=== PATIENT | male | born 1970 | race Caucasian/White ===

== ENCOUNTER 2025-05-30 16:30 | Emergency (ER) | payer MEDICARE, MEDICAID, SELFPAY ==
[2025-05-30 16:31] VITALS: BP 128/70; PULSE 89; RESP 16; TEMP 36.8; O2SAT 99; BMI 31.7
--- NOTE | 2025-05-30 16:50 | EX.ED.VIS.UR ---
HPI HPI - URI History of Present Illness Chief Complaint: Cough Informant: patient and parent Narrative Narrative: Patient is a 54-year-old male with a history of borderline diabetes presenting with cough and ear pressure. Patient is accompanied by his daughter, who is supplementing history. - Reports cough for 3 days, worsening over time. - Denies productive cough, but notes soreness in the abdomen and side from coughing. - Denies emesis. - Experiences a heavy feeling in the chest when coughing hard, but denies dyspnea at rest or with ambulation. - Denies fevers, myalgias, or cephalgia. - Reports exposure to sick contacts at work, but denies known COVID-19 exposure. - Denies pharyngitis, but reports mild bilat ear pressure without hearing loss. - Denies history of pulmonary issues such as asthma. - Denies tobacco use. - Denies polydipsia or polyuria. ROS ROS ED Constitutional Constitutional ED: Denies chills or fever(s) Eyes Eyes: Denies change in vision or diplopia ENT ENT ED: Denies ear pain, rhinorrhea or sore throat Cardiovascular Cardiovascular: Denies chest pain, orthopnea or palpitations Respiratory/Chest Respiratory/Chest: Reports cough; Denies dyspnea, dyspnea on exertion, orthopnea or sputum Gastrointestinal Gastrointestinal: Denies abdominal pain, diarrhea, nausea or vomiting Genitourinary Genitourinary ED: Denies dysuria or hematuria Musculoskeletal Musculoskeletal: Denies back pain, myalgias or neck pain Integumentary Denies abscess or rash Neurologic Neurologic: Denies headache(s), paresthesias or weakness Psychiatric Psychiatric: Denies anxiety or suicidal thoughts PFSH PFSH Medical History no medical history Allergy/AdvReac Type Severity Reaction Status Date / Time No Known Allergies Allergy Verified 05/30/25 16:32 Family History no significant family his Surgical History no surgical history Social History Smoking Status: Never smoker EXAM Physical Exam Const Vital Signs: 05/30/25 16:31 05/30/25 16:38 Temperature 98.3 F Temperature Source Oral Pulse Rate 89 Respiratory Rate 16 Respiratory Effort Normal Non-Labored Respiratory Depth Normal Respiratory Pattern Normal Blood Pressure 128/70 H Blood Pressure Mean 89 Pulse Ox 99 Oxygen Delivery Method Room Air Room Air Positive well nourished and well developed Constitutional Narrative: Well-appearing no distress General Appearance ED: well developed and NAD HEENT Reports moist mucous membranes HEENT Narrative: EACs packed with cerumen bilaterally. I can see a small piece of the left which is normal-appearing but not the right. No discomfort with manipulation of the pinna or the tragus bilaterally. No pain with speculum examination of both ears. normocephalic and atraumatic Face and Sinus: Negative for sinus tenderness Throat: posterior oropharynx normal Eyes PERRL and EOMs intact bilaterally Neck full ROM, no lymphadenopathy, supple and no meningeal signs Resp normal respiratory effort and clear to auscultation bilaterally Resp Narrative: Conversive in full sentences. Cardio regular rate, regular rhythm and no murmurs GI non-tender and non-distended Auscultation: normoactive bowel sounds Palpation: soft Back/Spine no CVA tenderness General Back: other FROM Extremity normal to inspection General Extremety ED: Negative for edema, pulses abnormal or tenderness General Extremity: Negative for edema or pulses abnormal Neuro oriented x3, CN's II-XII intact bilaterally and no sensory deficits noted Sensorium / Orientation: awake and alert Motor Exam: strength 5/5 throughout Skin no rashes or lesions noted and no wounds MDM MDM MDM Narrative Medical decision making narrative: Assessment: The patient is a 54-year-old male presenting for a 1?3 day history of dry cough with associated chest and flank soreness from coughing. He denies sputum production, dyspnea at rest or exertion, fever, myalgias, headache, sore throat, or urinary symptoms. Physical exam shows clear lungs, normal vital signs, and oxygen saturation 100%. Tympanic membranes initially obscured by heavy bilateral cerumen; no signs of otitis seen once wax removed. Presentation and benign exam are most consistent with an acute viral upper respiratory infection; no indications for antibiotics at this time. Plan: - Bilateral ear irrigation performed by nursing; significant cerumen removed. - Post-procedure ear re-exam performed, TMs clear, patient reports symptom improvement. - Provided supportive care advice for viral URI and strict return precautions. - Discharged home in stable condition. Reevaluations: - Reexam after ear irrigation: tympanic membranes visible, no infection; patient states ears feel better. Diagnoses: Acute upper respiratory infection Impacted cerumen, bilateral Discharge Plan Triage Chief Complaint: Cough ED Provider: Gera Terrazas Dx/Rx/DC Orders Clinical Impression: Viral URI with cough, Bilateral impacted cerumen Instructions: Impacted Earwax, ED URI, Viral, No Abx (Adult) Primary Care Provider: Peter Medina Referrals: Peter Medina MD [Primary Care Provider, Medical] - 1 Week if not improving Print Language: [place] Disposition Disposition: Home, Self Care
[2025-05-30 18:16] VITALS: BP 111/73; PULSE 97; RESP 18; TEMP 37.2; O2SAT 98
== END 2025-05-30 18:16 | disposition home or self-care (01) ==
PROVIDERS: Emergency Provider Emergency Medicine; PCP Internal Medicine; Visit Provider Emergency Medicine
DX: J06.9 Acute upper respiratory infection, unspecified (principal); R05.9 Cough, unspecified; H61.23 Impacted cerumen, bilateral
CPT/HCPCS: 99283